=== PATIENT | male | born 1950 | race Caucasian/White ===

== ENCOUNTER 2017-06-26 07:23 | Day surgery (SDC) | payer MEDICARE ==
[2017-06-21 10:10] LABS: APPEARANCE,URINE SLIGHTLY-CLOUDY; BILIRUBIN,URINE NEGATIVE (NEGATIVE); GLUCOSE, URINE NEGATIVE (NEGATIVE); KETONES,URINE NEGATIVE (NEGATIVE); LEUKOCYTE ESTERASE,URINE NEGATIVE (NEGATIVE); NITRITE,URINE NEGATIVE (NEGATIVE); PROTEIN,URINE NEGATIVE (NEGATIVE); URINE SPECIFIC GRAVITY 1.023; UROBILINOGEN,URINE NEGATIVE mg/dL (<2.0)
[2017-06-21 10:11] LABS: ABSOLUTE EOSINOPHILS # (AUTO) 0.1 10^3/uL (0.0-0.6); ABSOLUTE LYMPHOCYTES (AUTO) 1.9 10^3/uL (0.5-4.7); ABSOLUTE MONOCYTES (AUTO) 0.7 10^3/uL (0.1-1.4); BASOPHILS % (AUTO) 0.5 % (0-2); EOSINOPHILS % (AUTO) 1.8 % (0-6); HEMOGLOBIN 14.6 g/dL (13.5-17.0); HGB HCT DIFFERENCE 1.8; LYMPHOCYTES % (AUTO) 28.1 % (13-45); MEAN CORPUSCULAR HEMOGLOBIN 34.7 pg (27.0-33.4); MEAN CORPUSCULAR HGB CONC 34.7 g/dL (32.0-36.0); MEAN CORPUSCULAR VOLUME 100 fl (80-97); MONOCYTES % (AUTO) 10.4 % (3-13); RED BLOOD COUNT 4.21 10^6/uL (4.35-5.55); RED CELL DISTRIBUTION WIDTH 13.2 % (11.5-14.0); SEGMENTED NEUTROPHILS % (AUTO) 59.2 % (42-78); WHITE BLOOD COUNT 6.7 10^3/uL (4.0-10.5)
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
[2017-06-21 11:09] LABS: ANION GAP 13 (5-19); BLOOD UREA NITROGEN 28 mg/dL (7-20); CALCIUM 9.5 mg/dL (8.4-10.2); CARBON DIOXIDE 28 mmol/L (22-30); CHLORIDE 101 mmol/L (98-107); GLUCOSE 76 mg/dL (75-110); POTASSIUM 4.8 mmol/L (3.6-5.0); SODIUM 142.2 mmol/L (137-145)
--- NOTE | 2017-06-21 11:10 | EKG REPORT ---
SEVERITY:- ABNORMAL ECG - SINUS RHYTHM NONSPECIFIC IVCD WITH LAD : Confirmed by: Melyssa Olsen MD 21-Jun-2017 11:09:13
[~2017-06-26 07:23] MED LIST: CEFAZOLIN 2 GM/D5W RTU 2 GM/50 ML RTUPB IV PRN; LACTATED RINGERS 1000 ML IV PRN
[2017-06-26] MEDS ORDERED: ALBUTEROL SULFATE 0.083% NEB 2.5 MG/3 ML AMPUL NEB ONE (08:00)
[2017-06-26] MEDS ORDERED: MIDAZOLAM 2 MG/2 ML INJ ONE (09:23)
[2017-06-26] MEDS ORDERED: BUPIVACAINE HCL 0.5 % INJ/PF 30 ML SDV ONE (09:23)
[2017-06-26] MEDS ORDERED: FENTANYL CITRATE INJ/PF 100 MCG/2 ML AMPUL ONE (09:23)
[2017-06-26] MEDS ORDERED: ONDANSETRON HCL INJ/PF 4 MG/2 ML SDV ONE (09:23)
[2017-06-26] MEDS ORDERED: LIDOCAINE 1%/EPINEPHRINE INJ 20 ML VIAL ONE (09:23)
[2017-06-26] MEDS ORDERED: PROPOFOL INJ 200 MG/20 ML VIAL IV ONE (09:23)
[2017-06-26] MEDS ORDERED: IBUPROFEN INJ 800 MG/8 ML VIAL IV ONE (09:24)
[2017-06-26] MEDS ORDERED: MORPHINE SULFATE 10 MG/ML INJ ONE (09:24)
[2017-06-26] MEDS ORDERED: DEXAMETHASONE SOD PHOSPHATE INJ 4 MG/1 ML VIAL ONE (09:26)
[2017-06-26] MEDS ORDERED: MORPHINE SULFATE 10 MG/ML INJ IV PRN (09:54)
[2017-06-26] MEDS ORDERED: DIPHENHYDRAMINE HCL 50 MG/ML VIAL IV PRN (09:54)
[2017-06-26] MEDS ORDERED: MEPERIDINE HCL/PF INJ 25 MG/1 ML DISP.SYRIN IV PRN (09:54)
[2017-06-26] MEDS ORDERED: PROMETHAZINE HCL INJ 25 MG/1 ML VIAL IV PRN ×2 (09:54)
[2017-06-26] MEDS ORDERED: FENTANYL CITRATE INJ/PF 100 MCG/2 ML AMPUL IV PRN ×3 (09:54)
--- NOTE | 2017-06-26 10:11 | Operative Report ---
Operative Report DATE OF SURGERY: 06/26/17 PREOPERATIVE DIAGNOSIS: Right medial meniscal tear POSTOPERATIVE DIAGNOSIS: Right medial meniscal tear. 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 Intact ACL. Grade 2 chondral malacia lateral compartment. Lateral meniscal tear. Grade 2 chondral malacia patellofemoral compartment OPERATION: Arthroscopic right partial medial and lateral meniscectomy SURGEON: EVIE VENTURA ANESTHESIA: LMAC PROCEDURE: With the patient supine on the operative table the right knee is insufflated with a combination of Marcaine, Xylocaine, and epinephrine. Subsequent medial lateral patella portals are created from the introduction of arthroscope and debridements mutation. Joint is examined in systematic fashion findings as above. Using combination of basket Thomas, mechanical shaver, and electric frequency ablation probable partial medial meniscectomy performed front from approximately 3:00 to 12:00 on the face of the dial. A partial lateral meniscectomy performed from approximately 6:00 to 12:00 on the face of the dial. The joint is examined in systematic fashion with no new findings. Instrumentation was removed. The portals were reapproximated interrupted nylon. A sterile compressive dressing was applied and the patient returned to PACU in satisfactory condition.
[2017-06-26] MEDS ORDERED: ONDANSETRON 4 MG TAB.RAPDIS SL PRN (10:30)
[2017-06-26] MEDS ORDERED: OXYCODONE HCL IR 5 MG TABLET PO PRN (10:30)
[2017-06-26 11:57] VITALS: BP 127/77
== END 2017-06-26 11:59 | disposition home or self-care (01) ==
LOC: OROUT 07:23
PROVIDERS: ATTEND Orthopaedic Surgery
PROC: 0SBC4ZZ Excision of Right Knee Joint, Percutaneous Endoscopic Approach (ICD-10-PCS; 2017-06-26)
PROC: 0SBC4ZZ Excision of Right Knee Joint, Percutaneous Endoscopic Approach (ICD-10-PCS; principal; 2017-06-26 09:30)
DX: M22.41 Chondromalacia patellae, right knee (principal); M23.200 Derangement of unspecified lateral meniscus due to old tear or injury, right knee; M23.203 Derangement of unspecified medial meniscus due to old tear or injury, right knee; I10 Essential (primary) hypertension; F17.220 Nicotine dependence, chewing tobacco, uncomplicated; E66.9 Obesity, unspecified; Z79.899 Other long term (current) drug therapy; Z68.33 Body mass index [BMI] 33.0-33.9, adult
CPT/HCPCS: 93005; 36415; 85025; 80048; 81001; 71020; 93010; 94640; 29880; J2250; J1100; J3010; J3490; J2270; J2405; J2704; A9270 ×2; J0690; J1741; 1400